=== PATIENT | male | born 1980 | race Two or more races ===

== ENCOUNTER 2024-01-15 01:51 | Emergency (ER) | payer SELFPAY ==
[~2024-01-15] VITALS: Ht 200.7 cm; Wt 115.0 kg
[2024-01-15 02:00] VITALS: PULSE 88; RESP 22; O2SAT 97
[2024-01-15] MEDS: SODIUM CHLORIDE 0.9% 1,000 ML IV ONE (02:14)
[2024-01-15] MEDS: MORPHINE SULFATE 4 MG/ML SYR/VIAL IV ONE (02:23)
[2024-01-15] MEDS: ONDANSETRON HCL 4 MG/2 ML VIAL IV ONE (02:23)
[2024-01-15] MEDS: ONDANSETRON HCL 4 MG/2 ML VIAL ONE (02:24)
[2024-01-15] MEDS: MORPHINE SULFATE 4 MG/ML SYR/VIAL ONE (02:24)
[2024-01-15 02:43] VITALS: BP 148/95; PULSE 90; RESP 12; TEMP 97.9; O2SAT 100
== END 2024-01-15 02:52 | disposition short-term general hospital (02) ==
LOC: ER 01:51
DX: S11.81XA Laceration without foreign body of other specified part of neck, initial encounter (principal); F17.210 Nicotine dependence, cigarettes, uncomplicated; W26.8XXA Contact with other sharp object(s), not elsewhere classified, initial encounter; Y93.89 Activity, other specified; Y92.89 Other specified places as the place of occurrence of the external cause; Y99.8 Other external cause status
CPT/HCPCS: 96361; 96374; 96375; 99285; J2270; J2405; J7030